=== PATIENT | female | born 1940 | race Caucasian/White ===

== ENCOUNTER 2016-04-02 05:47 | Inpatient (IN) | payer MEDICARE ==
[2016-04-02] MEDS ORDERED: CEFAZOLIN 2 Gram 50 ML IVPB ONE (06:00)
[2016-04-02] MEDS ORDERED: METOCLOPRAMIDE 10 MG TABLET PO ONE (06:00)
[2016-04-02] MEDS ORDERED: MECLIZINE 25 MG TABLET PO ONE (06:00)
[2016-04-02] MEDS ORDERED: FAMOTIDINE 20MG TABLET PO ONE (06:00)
[2016-04-02] MEDS ORDERED: ACETAMINOPHEN 1000MG/100 ML PREMIX IV ONE (06:00)
[2016-04-02] MEDS ORDERED: RINGERS SOLUTION,LACTATED 1,000 ML IV PRN (09:55)
[2016-04-02] MEDS ORDERED: METOCLOPRAMIDE HCL 10 MG/2 ML VIAL IVP PRN (10:15)
[2016-04-02] MEDS ORDERED: ONDANSETRON HCL IV 4 MG/2 ML VIAL IVP PRN (10:15)
[2016-04-02] MEDS ORDERED: SENNOSIDES/DOCUSATE SODIUM UD CAPSULE PO PRN (10:15)
[2016-04-02] MEDS ORDERED: DIPHENHYDRAMINE HCL 25 MG CAPSULE PO PRN (10:15)
[2016-04-02] MEDS ORDERED: MAGNESIUM HYDROXIDE 30 ML UDC PO PRN (10:15)
[2016-04-02] MEDS ORDERED: AL HYDROX/MAG HYDROX 30ML UD PO PRN (10:15)
[2016-04-02] MEDS ORDERED: ACETAMINOPHEN/CODEINE TABLET PO PRN ×2 (10:15)
[2016-04-02] MEDS ORDERED: ZOLPIDEM TARTRATE 5 MG TABLET PO PRN (10:15)
[2016-04-02] MEDS ORDERED: BUPIVACAINE 0.25% W/EPI MPF 30ML VIAL IVP ONE (10:32)
[2016-04-02] MEDS ORDERED: TRANEXAMIC ACID 1,000 MG/10 ML ML IV ONE (10:32)
[2016-04-02] MEDS ORDERED: BUPIVACAINE LIPOSOME 266MG/20ML VIAL IV ONE (10:32)
[2016-04-02] MEDS: HYDROMORPHONE HCL 1 MG/ML CPJ IVP PRN ×3 (11:47→18:36)
[2016-04-02] MEDS ORDERED: TRANEXAMIC ACID 1,000 MG in 0.9 % SODIUM CHLORIDE 100ML 100 ML IVPB ONE (12:00)
--- NOTE | 2016-04-02 14:28 | Rehab Evaluation ---
Patient Information - Patient Information Diagnosis: OA left knee, TKA left Ordered Treatment: PT Evaluate and Treat Status: Initial Evaluation Surgery: Yes (TKA left) Date of Surgery: 04/02/16 Past Medical/Surgical Hx: PAST MEDICAL/SURGICAL HISTORY Past Surgical History bilateral cataracts PMH - Respiratory Hx Respiratory Disorders Yes Hx Pneumonia Yes Hx of Productive Cough Yes: chronic just stopped smoking. PMH - Cardiovascular Hx Cardiovascular Disorders No Exercise Tolerance Good PMH - Neuro Hx Neurological Disorders Yes Hx Dizziness Yes: occass. PMH - GI Hx Gastrointestinal Disorders Yes Hx Gastroesophageal Reflux Yes PMH - Hx Genitourinary Disorders No Hx Age of Menopause 49 PMH - Endocrine Hx Endocrine Disorders No PMH - Musculoskeletal Hx Musculoskeletal Disorders Yes Hx Arthritis Yes: knees hands PMH - Psych Hx Psychiatric Problems No PMH - Hematology/Oncology Hx Hematology/Oncology No Disorders Precautions: [place], Fall - Time With Patient Total Time Spent With Patient (Min): 30 Treatment Procedures: Detail (Patient seen in room, supine in bed with CPM going 0-60 degrees, cryocuff in place, IV in place and resting. Removed CPM, cryocuff and pressure cuffs then reminded patient of knee exercises, performed with assist and quite a bit of pain then supine to sit with min assist with left LE, trapeze and walker once seated with leg dangling. Sit to stand with cues and min assist, FWW and transferred over to BSC with min assist then changed bed secondary to wet through all bedding with nurse assist, changed pants and gown then back into bed with min assist with left LE, up in bed with patient doing most of pushing. Re-attached all: CPM, cryocuff, compressive pads and got patient a warm blanket. Nursing finished bed and cleaned up, replaced tray table. Daughter present to assist.) Subjective Information - Subjective Information Per Patient (Pain minimal until sat up and did exercises. Lives alone but going to stay with daughter until ready to go home on her own againg. Has some steps into daughter's house and house set-up for needs after goes home.) Objective Data - Pain Pain Present: Yes (06/15) - Mental Status Patient Orientation: Oriented x3 - Visual Perception Appears within normal limits for therapeutic activities - ROM Within normal limits (Except left knee: 0-60 degrees today) - Strength/Tone Within normal limits (Except left knee: 3-/5 quads.) - Coordination Appears within normal limits for therapeutic activities - Bed Mobility Needs Assist (Slight assist required for mobility only.) - Transfers Needs Assist (Slight assist required for transfers to BSC and back to bed.) - Balance Balance Sitting: Good Balance Standing: Good - Sensation Intact - Gait Detail (Just transferred two steps to BSC then back to bed, WBAT.) - Special Tests No Therapy Assessment - Therapy Assessment Detail (Patient doing very well, some pain issues yet.) Patient Education - Patient Education Teaching Topic: Equipment Use, Exercise/Activity Response: Return Demonstration Teaching Method: Demonstration Teaching Recipient: Patient, Family Barriers To Learning: None Problem List - Problem List Physical Therapy Problem List: Detail (Some decrease in bed mobility, gait function, transfers and pain, decreased ROM left knee.) Goals - Goals Physical Therapy Goals: 1. Patient will exhibit good knee ROM so functional to go home. 2. Patient independent with bed mobility and up to BSC with CGA. 3. Functional gait and steps to get into home after discharge. Prognosis - Prognosis Good (Patient should progress well as get pain controlled and works on skills for discharge.) Plan - Plan Physical Therapy Plan: Patient to be seen BID tomorrow and possibly one time day after if needed to pass skills to go home safely with daughter.
[2016-04-02] MEDS ORDERED: MIDAZOLAM HCL 2MG/2ML VIAL IV ONE (14:29)
[2016-04-02] MEDS ORDERED: DEXMEDETOMIDINE HCL 200 MCG/2 ML VIAL IV ONE (14:29)
[2016-04-02] MEDS ORDERED: FENTANYL PF 100MCG/2ML VIAL IV ONE (14:29)
[2016-04-02] MEDS: CEFAZOLIN 2 Gram 2 GM in DEXTROSE 1 BAG IVPB SCH ×2 (14:57→22:59)
[2016-04-02] MEDS: RINGERS SOLUTION,LACTATED 1,000 ML IV SCH ×2 (15:10→21:12)
[2016-04-02] MEDS: HYDROCODONE/APAP 5/325MG TABLET PO PRN ×3 (16:01→22:55)
[2016-04-02] MEDS: ASPIRIN 325 MG TAB ENTERIC-COATED PO SCH (22:25)
[2016-04-03] MEDS: HYDROMORPHONE HCL 1 MG/ML CPJ IVP PRN ×4 (02:41→12:34)
[2016-04-03 06:37] LABS: HEMATOCRIT 36.5 % (35.0-47.0); MEAN CELL VOLUME 95.5 fl (81-97); MEAN CORPUSCULAR HEMOGLOBIN 31.4 pg (27-33); MEAN CORPUSCULAR HGB CONC 32.9 g/dl (32-36); MEAN PLATELET VOLUME 9.4 fl (7.4-10.4); PLATELET COUNT 252 K/uL (130-400); RED BLOOD COUNT 3.82 M/uL (3.80-5.40); RED CELL DISTRIBUTION WIDTH 13.6 % (11.5-14.5)
[2016-04-03] MEDS: CEFAZOLIN 2 Gram 2 GM in DEXTROSE 1 BAG IVPB SCH (07:39)
[2016-04-03] MEDS: HYDROCODONE/APAP 5/325MG TABLET PO PRN ×4 (07:58→22:46)
--- NOTE | 2016-04-03 09:16 | Operative Note ---
DATE OF SURGERY: 04/02/2016. SURGEON: Bay Degroot D.O. REFERRING PHYSICIAN: Sophia Page D.O. PREOPERATIVE DIAGNOSIS: OSTEOARTHRITIS OF THE LEFT KNEE. POSTOPERATIVE DIAGNOSIS: OSTEOARTHRITIS OF THE LEFT KNEE. OPERATIVE PROCEDURE: Left total knee arthroplasty. DESCRIPTION OF PROCEDURE: This 75-year-old female was taken to the operating room and was placed in the supine position on the operating room table after spinal anesthesia was induced by the Department of Anesthesia. The left lower extremity was then elevated. It was prepped with Hibiclens and draped in the usual sterile fashion. It was exsanguinated and the tourniquet was inflated to 300 mm Hg. All scrubbed personnel wore personal isolation suits. An anterior longitudinal midline incision was made followed by a medial peripatellar arthrotomy incision. An intracondylar drill hole was made for the intramedullary alignment zamzam and the distal femoral cutting block was pinned at a 9.0 mm, 5-degree valgus cut. The appropriate cuts were made. The sizing jig was affixed, and a size 70 was actually seen to be the appropriate size in the anterior posterior dimension, but too wide in the medial lateral dimension. Therefore the pin sites were moved 2.0 mm anteriorly. A size 67.5 four-in-one cutting block was then pinned in 3 degrees of external rotation. The appropriate cuts were made and the wafers of bone were removed. We then directed our attention to the proximal tibia. An extramedullary alignment guide was used to cut the proximal tibia referencing a 10-mm cut of the lateral tibial plateau. Once the appropriate alignment had been assured, a 3-degree posterior slope cut was made, and the wafer of bone was removed. We found that this was slightly insufficient medially due to the arthritic change, and an additional 2.0 mm was taken. Subsequently the remnants of the menisci and osteophytes were removed from the posterior aspect of the joint. The tibia was sized to a size 79, and the stem punch was used. The wound was copiously irrigated to remove debris from the surfaces. Trial components were inserted. A size 11 mm bearing gave us excellent stability and full range of motion of the knee. The patella was cut and restored to anatomic height with a 34 x 8.5 mm patella, and that was also stable. Again the wound was copiously irrigated and suctioned after all trial components had been removed. All of the bony surfaces were dried. All components were cemented into place with excessive cement being removed after the insertion of each component. Initially the tibial base plate was cemented followed by the insertion of the tibial bearing, the femoral component, and finally the patella. Once the cement had hardened, the knee was again taken through range of motion with excellent stability being identified. The wound was again irrigated with lactated ringers solution. Exparel was injected into the posteromedial and lateral corners of the joint and the periosteum and joint capsule of the proximal tibia and distal femur. The drain was placed through a separate stab incision, and the arthrotomy incision was closed with a 2-0 Vicryl. The subcutaneous tissue was closed with 0 Vicryl and the skin with bell. Sterile dressings with a Polar Care were applied. The patient was taken to the recovery room in satisfactory condition. GROSS PATHOLOGY: This patient had very severe medial compartment osteoarthritis with full-thickness articular cartilage loss being noted. Marginal osteophytes were also identified there. The lateral compartment demonstrated grade 2 changes as did the patellofemoral articulation with grade 4 changes noted in the medial compartment. Bay Degroot D.O. Date Time Job Number: [id number] MTDD
[2016-04-03] MEDS ORDERED: ACETAMINOPHEN 325 MG TAB PO PRN (10:15)
[2016-04-03] MEDS: ASPIRIN 325 MG TAB ENTERIC-COATED PO SCH ×2 (10:22→22:47)
--- NOTE | 2016-04-03 10:31 | Physical Therapy Tx Note ---
Physical Therapy Tx Note - Treatment Note Tolerated: Good (Patient sitting up in chair, had some nausea this am and needed med to control but now much better. Seems sleepy yet. Willing to try to walk in room and do exercises again.) Physical Therapy Tx Note: Detail (Supine in chair to sit with min assist, sit to stand with min assist then patient able to ambulate with FWW from chair around bed to opposite side, stand to sit with verbal cues and assist to slide out left leg then into bed with min assist left LE. Up in bed with very min assist. Performed knee exercises in bed with assist only with heel slide. Able to perform SLR, glut, ham and quad sets and ankle pumps independently. Replaced CPM, cryocuff and compressive stockings, call light and tray table close and gave patient drind of water. Daughter present if needs anything else. ) Physical Therapy Problem List: Detail (Some decrease in bed mobility, gait function, transfers and pain, decreased ROM left knee.) Physical Therapy Goals: 1. Patient will exhibit good knee ROM so functional to go home. 2. Patient independent with bed mobility and up to BSC with CGA. 3. Functional gait and steps to get into home after discharge. Prognosis: Good (Much better this am but quite a lot of pain yet so asked nurse for pain med before left floor for this patient.) Physical Therapy Plan: Patient to be seen BID tomorrow and possibly one time day after if needed to pass skills to go home safely with daughter.
[2016-04-03] MEDS: CELECOXIB 100 MG CAPSULE PO SCH (13:59)
--- NOTE | 2016-04-03 15:54 | Physical Therapy Tx Note ---
Physical Therapy Tx Note - Treatment Note Tolerated: Good (Patient much more alert this pm and willing to get out of bed and try walking as far as possible and steps. Fatigued with gait and steps but able to demonstrate good technique.) Total Time Spent With Patient: 30 Physical Therapy Tx Note: Detail (Patient seen bedside, in bed with CPM running so removed CPM, cryocuff and unhooked compressive stockings (air). Supine to sit with very min assist for left LE, used trapeze. Sit to stand with cues only and CGA, and FWW. Ambulated with FWW WBAT to door of room, sat in wheelchair and assisted down the [place] to steps. Patient able to sit to stand independently then walked down three steps with cues and min assist for safety using rail and folded walker. Back up the stairs with same assist and rail/ walker then ambulated about 50 feet in [place] back toward room with FWW and CGA, cues for WBAT. Wheeled remainder of distance to room then transferred to reclining chair, elevated LES, pillow under knee. Worked on knee exercises as patient could tolerate to review same. Left cryocuff on knee and tray table close, call light close. Daughter present to help as needed.) Physical Therapy Problem List: Detail (Some decrease in bed mobility, gait function, transfers and pain, decreased ROM left knee.) Physical Therapy Goals: 1. Patient will exhibit good knee ROM so functional to go home. 2. Patient independent with bed mobility and up to BSC with CGA. 3. Functional gait and steps to get into home after discharge. Prognosis: Good (Patient may stay one more night to get pain and mobility under control. She has passed skills but only did stairs once and had a little difficulty coming back up the three steps. She also has not walked very far at one time.) Physical Therapy Plan: Patient to be seen BID tomorrow and possibly one time day after if needed to pass skills to go home safely with daughter.
[2016-04-03] MEDS: RINGERS SOLUTION,LACTATED 1,000 ML IV SCH ×2 (20:22→20:41)
[2016-04-04 06:41] LABS: HEMATOCRIT 33.9 % (35.0-47.0); HEMOGLOBIN 11.3 gm/dl (11.6-16.0); MEAN CELL VOLUME 95.2 fl (81-97); MEAN CORPUSCULAR HEMOGLOBIN 31.7 pg (27-33); MEAN CORPUSCULAR HGB CONC 33.3 g/dl (32-36); MEAN PLATELET VOLUME 9.7 fl (7.4-10.4); PLATELET COUNT 232 K/uL (130-400); RED BLOOD COUNT 3.56 M/uL (3.80-5.40); RED CELL DISTRIBUTION WIDTH 13.5 % (11.5-14.5); WHITE BLOOD COUNT W/O DIFF 11.7 K/uL (4.2-12.2)
[2016-04-04] MEDS: HYDROCODONE/APAP 5/325MG TABLET PO PRN ×3 (08:33→15:31)
[2016-04-04] MEDS: CELECOXIB 100 MG CAPSULE PO SCH (11:01)
[2016-04-04] MEDS: ASPIRIN 325 MG TAB ENTERIC-COATED PO SCH (11:01)
--- NOTE | 2016-04-04 12:05 | Physical Therapy Tx Note ---
Physical Therapy Tx Note - Treatment Note Total Time Spent With Patient: 40 Physical Therapy Tx Note: Detail (Sit<>stand, and Ambulation with 2ww 72' x2 and ambulate 3 steps up/down with minimal to no c/o pain. Pt is using hand @ times to move leg. Independent with HEP but some difficulty getting a good quad contraction. Pt was told this was not unusual this soon after surgery. She does have assist @ home and should do well. PM treatment up in chair ambulation 72' x2, 2ww stairs 3 with SBA of 1, min c/o discomfort. review HEP.) Physical Therapy Problem List: Detail (Some decrease in bed mobility, gait function, transfers and pain, decreased ROM left knee.) Physical Therapy Goals: 1. Patient will exhibit good knee ROM so functional to go home. 2. Patient independent with bed mobility and up to BSC with CGA. 3. Functional gait and steps to get into home after discharge. Prognosis: Good Physical Therapy Plan: Patient to be seen BID tomorrow and possibly one time day after if needed to pass skills to go home safely with daughter.
--- NOTE | 2016-04-06 15:44 | Discharge Summary ---
DATE OF ADMISSION: 04/02/16 DATE OF DISCHARGE: 04/04/16 ADMITTING DIAGNOSIS: OSTEOARTHRITIS OF THE LEFT KNEE. DISCHARGE DIAGNOSIS: OSTEOARTHRITIS OF THE LEFT KNEE. OPERATIVE PROCEDURE: LEFT TOTAL KNEE ARTHROPLASTY. DESCRIPTION: This 75-year-old female was admitted to the hospital for elective total knee arthroplasty and tolerated the operative procedure well. The drain was removed the first postoperative day. She did have some problems with nausea but that has cleared and she is ready for discharge. She did clear physical therapy. The wound appeared satisfactory. She did have mild erythema on either side of the wound; the entire length of the incision about 5 cm on each side. It does not appear to show any significant swelling. There is no drainage. The wound otherwise appears healthy. There is no sign of infection in my opinion. The patient will be discharged home. She will wear her Jere hose during the day and remove them at night and she will take Aspirin 325 mg b.i.d. for two weeks. She was given a prescription for Solon 5/325 mg one every four hours as necessary for pain; she was given #60. She will follow-up in my office in two weeks. Routine wound care instructions were given. Should she have any problems prior to being seen, she was instructed to call my office. SVITLANA GALICIA D.O. Date & Time JOB NUMBER: [id number] MTDD
== END 2016-04-04 15:50 | disposition home or self-care (01) | DRG 470 ==
LOC: MEDSURG 05:47
PROVIDERS: ADMIT Orthopaedic Surgery; ATTEND Orthopaedic Surgery
PROC: 0SRD0J9 Replacement of Left Knee Joint with Synthetic Substitute, Cemented, Open Approach (ICD-10-PCS; principal; 2016-04-02 07:30)
DX: M17.12 Unilateral primary osteoarthritis, left knee (principal)
CPT/HCPCS: 85025; 97110; 97116; 97161; J1170; J2405; J7120